=== PATIENT | female | born 1975 | race Caucasian/White ===

== ENCOUNTER 2016-09-22 07:43 | Outpatient (CLI) | payer BC ==
--- NOTE | 2016-09-22 10:34 | DIAGNOSTIC IMAGING REPORT ---
PROCEDURE: MG BILATERAL SCREENING W/CAD INDICATION: Screening. Baseline. Family history breast carcinoma (great aunt) TECHNIQUE: Bilateral CC and MLO digital views. COMPARISON: None. FINDINGS: Computer-aided detection applied. Moderately dense. No evidence of mass or suspicious calcification. IMPRESSION: 1. Negative mammogram RESULT CODE: 1- Negative. A. A negative report should not delay biopsy if a dominant or clinically suspicious mass is present. 10-15% of cancers are not identified by x-ray. B. A negative report may reinforce clinical impression. C. Adenosis and dense breasts may obscure an underlying neoplasm. D. False positive reports average 6-10%. E.. A yearly screening mammogram is recommended. A reminder letter will be scheduled.
== END 2016-09-22 23:00 ==
LOC: MAM SRH 07:43
DX: Z12.31 Encounter for screening mammogram for malignant neoplasm of breast (principal)